=== PATIENT | male | born 1970 | race Caucasian/White ===

== ENCOUNTER 2017-06-20 17:57 | Emergency (ER) | payer OTHER ==
[~2017-06-20] VITALS: Ht 172.7 cm; Wt 102.1 kg
--- NOTE | 2017-06-20 18:45 | ED GENERAL ADULT ---
History of Present Illness General Chief Complaint: General Adult Stated Complaint: RABIES SHOT Source: patient, family, old records Exam Limitations: no limitations Vital Signs & Intake/Output Vital Signs & Intake/Output Vital Signs Date Time Temp Pulse Resp B/P B/P Pulse O2 O2 Flow FiO2 Mean Ox Delivery Rate 06/20 1833 98.2 79 16 146/99 98 Room Air Room Air Allergies Coded Allergies: No Known Allergies (06/20/17) Triage Note: PT WAS POSSIBLY IN CONTACT WITH A BAT IN HIS BEDROOM Triage Nurses Notes Reviewed? yes Onset: Abrupt Duration: day(s): (1), constant Timing: single episode today Injury Environment: home Severity: mild No Modifying Factors: none Associated Symptoms: denies HPI: 46-year-old male presents to ER sent in by his that for rabies vaccination after they found a bat flying around her bedroom today. The patient and his deny being bit. There are no complaints at this time otherwise. They've never received rabies vaccination prior. (Joseph Sanford) Past History Travel History Traveled to [place] past 21 day No Medical History Any Pertinent Medical History? 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 No (Joseph Sanford) Review of Systems Review of Systems Constitutional: Reports: see HPI. Comments Review of systems: See HPI, All other systems negative. Constitutional, no chills no fever, HEENT: no sore throat no congestion Cardiovascular: No chest pain Skin: no rashes, no change in skin Respiratory: no cough GI: No nausea no vomiting Muscle skeletal: No joint pain, no back pain Neurologic:, no headache Heme/endocrine: No bruising (Joseph Sanford) Physical Exam Physical Exam General Appearance: well developed/nourished, no apparent distress, alert, awake , comfortable Comments: Well-developed well-nourished patient in no apparent distress. HEENT: Atraumatic, extraocular motion intact Neck: Supple, FROM Back: FROM Respiratory: No respiratory distress. Patient speaking in full complete sentences. Extremities: full range of motion Neuro: awake, alert, and oriented to person, place and time. There were no obvious focal neurologic abnormalities. Skin: Warm & dry;No appreciable rash on exposed skin Psych: Mood affect normal, normal memory normal judgment. Core Measures ACS in differential dx? No CVA/TIA Diagnosis: No Sepsis Present: No Sepsis Focused Exam Completed? No (Joseph Sanford) Progress Differential Diagnoses I considered the following diagnoses in my evaluation of the patient: [rabies ppx Plan of Care: Current Medications Sig/Martina Start time Last Medication Dose Stop Time Status Admin Rabies Immune 3,060 UNITS ONCE ONE 06/20 1899 CAN Globulin 06/20 1900 (Rabies Immune Globlulin Inj) I discussed with the patient at length plan of care I had an extensive conversation regarding need for close follow up with their primary care physician this week as well as return precautions. I answered all of their questions, they feel comfortable with the plan and follow-up care. I provided them with the scheduled for the remainder of the rabies vaccinations they feel comfortable plan Initial ED EKG: none (Joseph Sanford) Departure Departure Time of Disposition: 1909 Disposition: HOME OR SELF CARE Condition: Stable Clinical Impression Primary Impression: Rabies, need for prophylactic vaccination against Referrals: Unknown Additional Instructions: please return on day 3, day 7 and 14 for the remainder of your rabies vaccinations. return anytime sooner with any concerns. 06/23 06/27 07/04 Departure Forms: Customer Survey General Discharge Information (Joseph Sanford) PA/INSTRUMENT LENS INSPECTOR Co-Sign Statement Statement: ED Attending supervision documentation- [] I saw and evaluated the patient. I have also reviewed all the pertinent lab results and diagnostic results. I agree with the findings and the plan of care as documented in the PA's/INSTRUMENT LENS INSPECTOR's documentation. [X] I have reviewed the ED Record and agree with the PA's/INSTRUMENT LENS INSPECTOR's documentation. [] Additions or exceptions (if any) to the PAs/INSTRUMENT LENS INSPECTOR's note and plan are summarized below: [] (Shon Mishra DO) Critical Care Note Critical Care Note Critical Care Time: non-applicable (Joseph Sanford)
[2017-06-20 20:00] VITALS: BP 138/89
== END 2017-06-20 20:00 ==
LOC: ERH 17:57
DX: Z20.3 Contact with and (suspected) exposure to rabies (principal)
CPT/HCPCS: 90376; 90471

== ENCOUNTER 2017-06-23 15:38 | Emergency (ER) | payer OTHER ==
[~2017-06-23] VITALS: Ht 172.7 cm; Wt 104.3 kg
--- NOTE | 2017-06-23 15:42 | ED GENERAL ADULT ---
History of Present Illness General Chief Complaint: General Adult Stated Complaint: "TO FOLLOW UP RABIES VACCINATION" Source: patient, family, old records Exam Limitations: no limitations Vital Signs & Intake/Output Vital Signs & Intake/Output Vital Signs Date Time Temp Pulse Resp B/P B/P Pulse O2 O2 Flow FiO2 Mean Ox Delivery Rate 06/23 1616 98 06/23 1548 97.0 77 18 125/81 96 Room Air Room Air Allergies Coded Allergies: No Known Allergies (06/20/17) Triage Nurses Notes Reviewed? yes Onset: Gradual Duration: day(s): Timing: recent history Injury Environment: home HPI: 46yo male presents to ED for second rabbies vaccine. Patient was exposed to a bat in his home, no known bite, recieving rabbies vaccine for prophylaxis. He tolerated first vaccine on 06/20/17 without adverse reaction. No current complaints at this time. (Kyra Huitron) Past History Travel History Traveled to [place] past 21 day No Medical History Any Pertinent Medical History? 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 No (Kyra Huitron) Review of Systems Review of Systems Constitutional: Reports: no symptoms. EENTM: Reports: no symptoms. Respiratory: Reports: no symptoms. Cardiovascular: Reports: no symptoms. GI: Reports: no symptoms. Genitourinary: Reports: no symptoms. Musculoskeletal: Reports: no symptoms. Skin: Reports: no symptoms. Neurological/Psychological: Reports: no symptoms. Hematologic/Endocrine: Reports: no symptoms. Immunologic/Allergic: Reports: no symptoms. All Other Systems: Reviewed and Negative (Kyra Huitron) Physical Exam Physical Exam General Appearance: well developed/nourished, no apparent distress, alert, awake Head: atraumatic, normal appearance Eyes: Bilateral: normal appearance. Ears, Nose, Throat: hearing grossly normal Neck: normal inspection, supple, full range of motion Respiratory: no respiratory distress Back: normal inspection, normal range of motion Extremities: normal inspection Neurologic/Psych: awake, alert, oriented x 3 Skin: intact, normal color, warm/dry Core Measures ACS in differential dx? No CVA/TIA Diagnosis: No Sepsis Present: No Sepsis Focused Exam Completed? No (Kyra Huitron) Progress Differential Diagnoses I considered the following diagnoses in my evaluation of the patient: [ENCOUNTER FOR vaccine, rabbies, rabbies vaccine, animal bite] Plan of Care: Patient medicated with second vaccine. He will follow up as scheduled for further doses. Patient tolerated vaccine well. Agrees with plan of care. Initial ED EKG: none (Kyra Huitron) Departure Departure Disposition: HOME OR SELF CARE Condition: Stable Clinical Impression Primary Impression: Encounter for administration of vaccine Referrals: Radames BARBOSA,Andrés Buck (PCP/Family) Additional Instructions: RETURN 06/27 AND 07/04 FOR REMAINDER OF RABBIES VACCINES. RETURN SOONER WITH ANY SYMPTOMS OR CONCERNS. Departure Forms: Customer Survey General Discharge Information (Kyra Huitron) PA/BOBTAIL DRIVER Co-Sign Statement Statement: ED Attending supervision documentation- [] I saw and evaluated the patient. I have also reviewed all the pertinent lab results and diagnostic results. I agree with the findings and the plan of care as documented in the PA's/BOBTAIL DRIVER's documentation. [X] I have reviewed the ED Record and agree with the PA's/BOBTAIL DRIVER's documentation. [] Additions or exceptions (if any) to the PAs/BOBTAIL DRIVER's note and plan are summarized below: [] (Franco BARBOSA,Luis Miguel Buck) Critical Care Note Critical Care Note Critical Care Time: non-applicable (Kyra Huitron)
[2017-06-23 15:48] VITALS: BP 125/81
== END 2017-06-23 16:17 ==
LOC: ERH 15:38
DX: Z20.3 Contact with and (suspected) exposure to rabies (principal)
CPT/HCPCS: 90471; 99281

== ENCOUNTER 2017-06-27 15:41 | Emergency (ER) | payer OTHER ==
[~2017-06-27] VITALS: Ht 172.7 cm; Wt 104.3 kg
[2017-06-27 16:04] VITALS: BP 114/80
--- NOTE | 2017-06-27 16:07 | ED GENERAL ADULT ---
History of Present Illness General Chief Complaint: General Adult Stated Complaint: HERE FOR 3RD RABIES SHOT Source: patient Exam Limitations: no limitations Vital Signs & Intake/Output Vital Signs & Intake/Output Vital Signs Date Time Temp Pulse Resp B/P B/P Pulse O2 O2 Flow FiO2 Mean Ox Delivery Rate 06/27 1604 96.7 71 18 114/80 98 Room Air Allergies Coded Allergies: No Known Allergies (06/20/17) Triage Note: RECEIVED 46 YO MALE HERE FOR 3RD RABIES SHOT Triage Nurses Notes Reviewed? yes Onset: Abrupt Duration: day(s): Timing: recent history Injury Environment: home No Modifying Factors: none HPI: 46-year-old male comes into the emergency room for rabies vaccine. Exposure to bat in the house. Denies any bites. Denies any other symptoms. Past History Travel History Traveled to [place] past 21 day No Medical History Any Pertinent Medical History? 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 No Review of Systems Review of Systems Constitutional: Reports: no symptoms. EENTM: Reports: no symptoms. Respiratory: Reports: no symptoms. Cardiovascular: Reports: no symptoms. GI: Reports: no symptoms. Genitourinary: Reports: no symptoms. Musculoskeletal: Reports: no symptoms. Skin: Reports: no symptoms. Neurological/Psychological: Reports: no symptoms. Hematologic/Endocrine: Reports: no symptoms. Immunologic/Allergic: Reports: no symptoms. All Other Systems: Reviewed and Negative Physical Exam Physical Exam General Appearance: well developed/nourished, no apparent distress, alert Head: atraumatic, normal appearance Eyes: Bilateral: normal appearance. Ears, Nose, Throat: normal ENT inspection, hearing grossly normal Neck: normal inspection Respiratory: normal breath sounds, no respiratory distress Cardiovascular: regular rate/rhythm Back: normal inspection Extremities: normal inspection Neurologic/Psych: awake, alert, oriented x 3, normal gait Skin: intact, normal color Core Measures ACS in differential dx? No CVA/TIA Diagnosis: No Sepsis Present: No Sepsis Focused Exam Completed? No Progress Differential Diagnoses I considered the following diagnoses in my evaluation of the patient: Rabies, allergic reaction, cellulitis, Plan of Care: Return as previously instructed Initial ED EKG: none Departure Departure Disposition: HOME OR SELF CARE Condition: Stable Clinical Impression Primary Impression: Rabies exposure Referrals: Radames BARBOSA,Andrés Buck (PCP/Family) Additional Instructions: Return as previously instructed. Return if any other concerns worsening symptoms. Departure Forms: Customer Survey General Discharge Information Critical Care Note Critical Care Note Critical Care Time: non-applicable
== END 2017-06-27 17:00 ==
LOC: ERH 15:41
DX: Z20.3 Contact with and (suspected) exposure to rabies (principal)
CPT/HCPCS: 90471; 99281

== ENCOUNTER 2017-07-04 16:56 | Emergency (ER) | payer OTHER ==
[~2017-07-04] VITALS: Ht 165.1 cm; Wt 104.3 kg
[2017-07-04 17:04] VITALS: BP 139/86
--- NOTE | 2017-07-04 17:08 | ED GENERAL ADULT ---
History of Present Illness General Chief Complaint: General Adult Stated Complaint: PT IS HERE FOR RABIES SHOT Source: patient, old records Exam Limitations: no limitations Vital Signs & Intake/Output Vital Signs & Intake/Output Vital Signs Date Time Temp Pulse Resp B/P B/P Pulse O2 O2 Flow FiO2 Mean Ox Delivery Rate 07/04 1705 97 07/04 1704 98.7 73 18 139/86 99 Room Air Allergies Coded Allergies: No Known Allergies (06/20/17) Triage Note: PT HERE FOR LAST RABIES VACCINATION. NO ILL EFFECTS FROM PAST SHOTS PER PT Triage Nurses Notes Reviewed? yes Onset: Gradual Duration: week(s):, better, gone now Timing: single episode today Injury Environment: home Severity: mild No Modifying Factors: none HPI: 46 YEAR OLD male here for her final rabies shot. He was seen after a bat was found in his house. He is unsure if he was bitten. He states his been tolerating the initial vaccines well he has no concerns. (Uriah Petersen) Past History Travel History Traveled to [place] past 21 day No Medical History Any Pertinent Medical History? 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 No (Uriah Petersen) Review of Systems Review of Systems Constitutional: Reports: no symptoms. EENTM: Reports: no symptoms. Respiratory: Reports: no symptoms. Cardiovascular: Reports: no symptoms. GI: Reports: no symptoms. Genitourinary: Reports: no symptoms. Musculoskeletal: Reports: no symptoms. Skin: Reports: no symptoms. Neurological/Psychological: Reports: no symptoms. Hematologic/Endocrine: Reports: no symptoms. Immunologic/Allergic: Reports: no symptoms. All Other Systems: Reviewed and Negative (Uriah Petersen) Physical Exam Physical Exam General Appearance: well developed/nourished, no apparent distress, alert, awake Head: atraumatic, normal appearance Eyes: Bilateral: normal appearance, EOMI. Ears, Nose, Throat: hearing grossly normal Neck: normal inspection, supple, full range of motion Respiratory: no respiratory distress Back: normal inspection, normal range of motion Extremities: normal inspection, normal range of motion, no edema Neurologic/Psych: no motor/sensory deficits, awake, alert, oriented x 3, normal gait Skin: intact, normal color, warm/dry Core Measures ACS in differential dx? No CVA/TIA Diagnosis: No Sepsis Present: No Sepsis Focused Exam Completed? No (Uriah Petersen) Progress Differential Diagnoses I considered the following diagnoses in my evaluation of the patient: [Need for rabies vaccine, rabies vaccine side effect] Plan of Care: Current Medications Sig/Martina Start time Last Medication Dose Stop Time Status Admin Rabies Vaccine 1 SYR ONCE ONE 07/04 1699 UNVr (Rabies (Vaccine) 07/04 1700 Inj (1ML)) Patient here for final rabies vaccine. He's been tolerating them well. Resection ordered an administrative. Patient tolerated well. Advised to follow -up with primary care doctor or return with any concerns Initial ED EKG: none (Uriah Petersen) Departure Departure Disposition: HOME OR SELF CARE Condition: Stable Clinical Impression Primary Impression: Rabies, need for prophylactic vaccination against Referrals: Radames BARBOSA,Andrés Buck (PCP/Family) Additional Instructions: RETURN NEEDED Departure Forms: Customer Survey General Discharge Information (Uriah Petersen) PA/TERRITORY SALES PROFESSIONAL Co-Sign Statement Statement: ED Attending supervision documentation- I saw and evaluated the patient. I have also reviewed all the pertinent lab results and diagnostic results. I agree with the findings and the plan of care as documented in the PA's/TERRITORY SALES PROFESSIONAL's documentation. x I have reviewed the ED Record and agree with the PA's/TERRITORY SALES PROFESSIONAL's documentation. [] Additions or exceptions (if any) to the PAs/TERRITORY SALES PROFESSIONAL's note and plan are summarized below: [] (Deja BARBOSA,Joe) Critical Care Note Critical Care Note Critical Care Time: non-applicable (Uriah Petersen)
== END 2017-07-04 17:23 ==
LOC: ERH 16:56
DX: Z20.3 Contact with and (suspected) exposure to rabies (principal)
CPT/HCPCS: 90471; 99281